=== PATIENT | female | born 1935 | race Caucasian/White ===

== ENCOUNTER 2018-05-14 15:16 | Inpatient (IN) | payer MEDICARE, BC ==
[~2018-05-14] VITALS: Ht 152.4 cm; Wt 49.9 kg
--- NOTE | 2018-05-14 15:39 | NUR ---
PT IS IN ROOM #1A DR GODINEZ EVALUATED THE PT.
[2018-05-14] MEDS ORDERED: IV NORMAL SALINE 500 ML BAG IV ONE (15:45)
[2018-05-14] MEDS ORDERED: PANTOPRAZOLE SODIUM 40 MG VIAL IV ONE (15:45)
[2018-05-14] MEDS ORDERED: SENN-167 PO (15:50)
[2018-05-14] MEDS ORDERED: DICL100G16 TP (15:50)
[2018-05-14] MEDS ORDERED: DOCU-141 PO (15:50)
[2018-05-14] MEDS ORDERED: TRAM50TA2 PO (15:50)
[2018-05-14] MEDS ORDERED: LACT-214 PO (15:50)
[2018-05-14] MEDS ORDERED: VITA100012 PO (15:50)
[2018-05-14] MEDS ORDERED: CALC-21 PO (15:50)
[2018-05-14] MEDS ORDERED: ESCI5TAB PO (15:50)
[2018-05-14] MEDS ORDERED: ALEN70TA3 PO (15:50)
[2018-05-14] MEDS ORDERED: ASCO500T10 PO (15:50)
[2018-05-14] MEDS ORDERED: BISA-79 PO (15:50)
[2018-05-14] MEDS ORDERED: NAPR-1192 PO (15:50)
[2018-05-14 16:04] LABS: BASOPHILS % (AUTO) 0.3 % (0.0-2.0); EOSINOPHILS # (AUTO) 0.3 K/uL (0.0-0.7); EOSINOPHILS % (AUTO) 2.7 % (0.0-7.0); HEMATOCRIT 26.6 % (31.2-41.9); LYMPHOCYTES # (AUTO) 1.8 K/uL (20.0-40.0); LYMPHOCYTES % (AUTO) 18.9 % (20.5-51.5); MEAN CORPUSCULAR HEMOGLOBIN 32.6 uug (24.7-32.8); MEAN CORPUSCULAR HGB CONC 34 g/dL (32.3-35.6); MEAN CORPUSCULAR VOLUME 96.6 fL (75.5-95.3); MONOCYTES # (AUTO) 0.9 K/uL (2.0-10.0); MONOCYTES % (AUTO) 9.3 % (0.0-11.0); NEUTROPHILS # (AUTO) 6.4 K/uL (1.8-8.9); NEUTROPHILS % (AUTO) 68.8 % (38.5-71.5); PLATELET COUNT (AUTO) 293 K/uL (179-408); RED BLOOD CELL COUNT(AUTO) 2.76 MIL/uL (3.63-4.92); WHITE BLOOD COUNT (AUTO) 9.3 K/uL (3.8-11.8)
[2018-05-14 16:15] LABS: CARBON DIOXIDE 27 mmol/L (21-32); CHLORIDE 109 mmol/L (98-107); CREATININE 0.8 mg/dL (0.6-1.3); GLUCOSE 114 mg/dL (74-106); UREA NITROGEN, BLOOD 32 mg/dL (7-18)
[2018-05-14 16:21] LABS: ALANINE AMINOTRANSFERASE 21 U/L (14-59); ALKALINE PHOSPHATASE 122 U/L (50-136); ASPARTATE AMINOTRANSFERASE 17 U/L (15-37); BILIRUBIN,DIRECT 0.2 mg/dL (0.0-0.2); TOTAL PROTEIN, SERUM 7.7 g/dL (6.4-8.2)
[2018-05-14] MEDS ORDERED: LEVOFLOXACIN 750 MG/D5W 150 ML PIGGYBACK IV ONE (17:15)
[2018-05-14] MEDS ORDERED: LEVOFLOXACIN 750MG/D5W 150 ML IV ONE (17:48)
--- NOTE | 2018-05-14 18:26 | NUR ---
PT WAS TRANSFERED TO ROOM #205. REPORT WAS GIVEN TO TELEMETRY R/N.
[2018-05-14 18:52] VITALS: BP 138/74
--- NOTE | 2018-05-14 18:55 | NUR ---
ADMITTED FROM [facility] VIA ER AN 83 YO FEMALE WITH ADM DX OF PNEUMONIA. AWAKE ALERT KNOWS NAME BUT CONFUSED TO TIME AND PLACE. PER ER REPORT PATIENT HAD HIP SURGERY A MONTH AGO (RIGHT HIP REPLACEMENT). A-PILLOW APPLIED FOR PRECAUTION. ENDORSED TO [employer]PORATE VP ADVERTISING & ONLINE
[2018-05-14] MEDS ORDERED: ONDANSETRON 4 MG/2 ML VIAL IV PRN (19:15)
[2018-05-14] MEDS ORDERED: Z GUARD REMEDY PASTE 57 GM TUBE TOP PRN (19:15)
[2018-05-14] MEDS ORDERED: ZOLPIDEM 5 MG TABLET PO PRN (19:15)
[2018-05-14] MEDS ORDERED: ACETAMINOPHEN 325 MG TABLET PO PRN (19:15)
[2018-05-14] MEDS ORDERED: MAGNESIUM HYDROXIDE 30 ML LIQUID UDC PO PRN (19:15)
[2018-05-14 19:17] VITALS: BP_SYST 124; BP_DIAS 61; BP_DIAS 79
--- NOTE | 2018-05-14 19:36 | NUR ---
CLINICAL PHARMACY NOTE: VANCOMYCIN DOSING Request for vancomycin dosing on 83 y/o female 5' 110lbs for pneumonia Temp 98.3F BUN 32 Scr 0.8 WBC 9.3 received Levaquin in ER. Start vancomycin 750mg ivpb q24h estimated trough 16.7. Will order trough level prior to 4th dose. Will continue to monitor.
[2018-05-14] MEDS: SENNOSIDES 1 TABLET PO SCH ×2 (21:00→21:32)
[2018-05-14] MEDS: TRAMADOL HCL 50 MG TABLET PO PRN (21:33)
[2018-05-14] MEDS ORDERED: PIPERACILLIN/TAZOBACTAM/D5W 3.375 G in PREMIXED 1 EACH IV SCH (22:00)
[2018-05-14] MEDS ORDERED: VANCOMYCIN IV 750 MG in IV DEXTROSE 5% 250 ML IV SCH (22:00)
[2018-05-14 23:15] VITALS: BP 131/68
[2018-05-15 03:34] VITALS: BP 115/62
[2018-05-15 06:15] LABS: BASOPHILS % (AUTO) 0.3 % (0.0-2.0); EOSINOPHILS # (AUTO) 0.5 K/uL (0.0-0.7); EOSINOPHILS % (AUTO) 5.9 % (0.0-7.0); HEMATOCRIT 22.5 % (31.2-41.9); HEMOGLOBIN 7.7 g/dL (10.9-14.3); LYMPHOCYTES % (AUTO) 13.1 % (20.5-51.5); MEAN CORPUSCULAR HEMOGLOBIN 32.7 uug (24.7-32.8); MEAN CORPUSCULAR HGB CONC 34 g/dL (32.3-35.6); MEAN CORPUSCULAR VOLUME 95.8 fL (75.5-95.3); MONOCYTES # (AUTO) 0.7 K/uL (2.0-10.0); MONOCYTES % (AUTO) 8.7 % (0.0-11.0); NEUTROPHILS # (AUTO) 5.7 K/uL (1.8-8.9); PLATELET COUNT (AUTO) 252 K/uL (179-408); WHITE BLOOD COUNT (AUTO) 7.9 K/uL (3.8-11.8)
[2018-05-15 06:26] LABS: RED BLOOD CELL COUNT(AUTO) 2.35 MIL/uL (3.63-4.92)
[2018-05-15 06:33] LABS: CARBON DIOXIDE 25 mmol/L (21-32); CHLORIDE 109 mmol/L (98-107); CHOLESTEROL 175 mg/dL (<200); CREATININE 0.5 mg/dL (0.6-1.3); GLUCOSE 88 mg/dL (74-106); HDL CHOLESTEROL 52 mg/dL (40-60); MAGNESIUM 2.1 mg/dL (1.8-2.4); POTASSIUM 3.1 mmol/L (3.5-5.1); TRIGLYCERIDES 85 MG/DL (30-150); UREA NITROGEN, BLOOD 14 mg/dL (7-18)
--- NOTE | 2018-05-15 07:01 | NUR ---
PT SLEPT INTERMITTENTLY THROUGH THE NIGHT AND WAS EASILY AWOKEN, PT COMPLAINED OF HIP PAIN ONCE DURING THE NIGHT, PAIN MEDICATION WAS GIVEN AND WAS EFFECTIVE, PT STILL COMPLAINED OF SLIGHT PAIN WHEN HER HIP WAS TOUCHED. PT DENIES HAVING ANY DIFFICULTY BREATHING. ALL NEEDS MET, SAFETY MEASURES ARE IN PLACE, CALL LIGHT WITHIN REACH, BED ALARM IS ON.
--- NOTE | 2018-05-15 07:20 | NUR ---
RECEIVED REPORT FROM BISQUE FINISHER NURSE, PATIENT IN BED ASLEEP, NO DISTRESS NOTED AT THIS TIME, BED IN LOW POSITION, SIDE RAILS UP X2, SITTER AT BEDSIDE, BED ALARM ON. Addendum: 05/15/18 at 0746 by TONY KHALIL RN NO SITTER AT BEDSIDE, CORRECTION TO NOTE.
[2018-05-15] MEDS ORDERED: LACTOSE FREE FOOD PO SCH (09:00)
[2018-05-15] MEDS ORDERED: VITAMIN E 1000 UNIT PO SCH ×2 (09:00)
[2018-05-15] MEDS ORDERED: ESCITALOPRAM OXALATE 10 MG TABLET PO SCH (09:00)
[2018-05-15] MEDS ORDERED: Medication Not On Formulary EA (Escitalopram Oxalate (Lexapro) 5 MG) PO SCH (09:00)
[2018-05-15] MEDS ORDERED: [UNRECOGNIZED DRUG - OTHER] PO SCH (09:00)
--- NOTE | 2018-05-15 09:00 | NUR ---
Patient was found with clothes off and climbing out of bed. Patient was transferred to another room for safety.
[2018-05-15] MEDS: PROTEIN SUPPLEMENT (PROSTAT) 30 ML LIQUID PO SCH ×3 (09:12→17:20)
[2018-05-15] MEDS: VITAMIN E 400 UNITS CAPSULE PO SCH (09:12)
[2018-05-15] MEDS: BISACODYL 5 MG TABLET.DR PO SCH (09:13)
[2018-05-15] MEDS: TRAMADOL HCL 50 MG TABLET PO PRN ×3 (09:13→21:23)
[2018-05-15] MEDS: DOCUSATE SODIUM 100 MG CAPSULE PO SCH ×2 (09:14→17:19)
[2018-05-15] MEDS: ASCORBIC ACID 500 MG TABLET PO SCH (09:14)
[2018-05-15 11:40] VITALS: BP 149/88
[2018-05-15] MEDS: GABAPENTIN 100 MG CAPSULE PO SCH ×2 (13:59→17:19)
[2018-05-15] MEDS: VANCOMYCIN IV 750 MG in IV DEXTROSE 5% 250 ML IV SCH (13:59)
--- NOTE | 2018-05-15 14:49 | NUR ---
CLINICAL PHARMACY NOTE: VANCOMYCIN DOSING Request for vancomycin dosing on 83 y/o female 5' 110lbs for pneumonia Temp 98.2F BUN 14 Scr 0.5 WBC 7.9 As Crcl has improved, adjusted frequency from 750mg q24h to q16 hr for estimated trough of 16.8, 2nd dose today at 1400. Will keep eye on renal fxn and adjust regimen if were to change or become unstable. Other will order trough before 4th scheduled dose (not ordered yet). Will follow
[2018-05-15] MEDS: POTASSIUM PHOSPHATE MM 7.5 MMOL in IV DEXTROSE 5% 100 ML IV SCH ×2 (15:27→17:20)
[2018-05-15 15:40] VITALS: BP 126/52
[2018-05-15] MEDS: LEVOFLOXACIN 500 MG/D5W 500 MG in PREMIXED 1 EACH IV SCH (16:52)
--- NOTE | 2018-05-15 18:44 | NUR ---
Patient has been agitated throughout shift, talking to self, hyper rastafari, grieving for dog and mother, and various out subjects. Patient is currently in bed, bed alarm on, bed in low position, side rails up x2, bed alarm on.
[2018-05-15 20:00] VITALS: BP 116/41
[2018-05-15] MEDS: SENNOSIDES 1 TABLET PO SCH (21:22)
[2018-05-15] MEDS: LACTOBACILLUS RHAMNOSUS GG 1 EACH CAPSULE PO SCH (21:22)
[2018-05-16 04:00] VITALS: BP 115/56
[2018-05-16] MEDS: TRAMADOL HCL 50 MG TABLET PO PRN ×3 (04:28→20:16)
[2018-05-16] MEDS ORDERED: ALENDRONATE SODIUM 70 MG TABLET PO SCH (06:00)
[2018-05-16 06:18] LABS: BASOPHILS % (AUTO) 0.4 % (0.0-2.0); EOSINOPHILS # (AUTO) 0.4 K/uL (0.0-0.7); EOSINOPHILS % (AUTO) 4.2 % (0.0-7.0); HEMATOCRIT 22.6 % (31.2-41.9); HEMOGLOBIN 7.8 g/dL (10.9-14.3); LYMPHOCYTES % (AUTO) 11.1 % (20.5-51.5); MEAN CORPUSCULAR HEMOGLOBIN 32.3 uug (24.7-32.8); MEAN CORPUSCULAR HGB CONC 35 g/dL (32.3-35.6); MEAN CORPUSCULAR VOLUME 93.6 fL (75.5-95.3); MONOCYTES # (AUTO) 0.8 K/uL (2.0-10.0); MONOCYTES % (AUTO) 8.6 % (0.0-11.0); NEUTROPHILS # (AUTO) 6.8 K/uL (1.8-8.9); NEUTROPHILS % (AUTO) 75.7 % (38.5-71.5); PLATELET COUNT (AUTO) 310 K/uL (179-408)
[2018-05-16 06:22] LABS: RED BLOOD CELL COUNT(AUTO) 2.41 MIL/uL (3.63-4.92)
[2018-05-16] MEDS: VANCOMYCIN IV 750 MG in IV DEXTROSE 5% 250 ML IV SCH ×2 (06:29→23:13)
[2018-05-16 06:39] LABS: IRON, SERUM 39 ug/dL (50-175)
[2018-05-16 06:56] LABS: CARBON DIOXIDE 26 mmol/L (21-32); CHLORIDE 106 mmol/L (98-107); CREATININE 0.5 mg/dL (0.6-1.3); FERRITIN 159 ng/mL (8-252); GLUCOSE 99 mg/dL (74-106); POTASSIUM 3.2 mmol/L (3.5-5.1); UREA NITROGEN, BLOOD 7 mg/dL (7-18)
[2018-05-16] MEDS: ASCORBIC ACID 500 MG TABLET PO SCH (08:11)
[2018-05-16] MEDS: LACTOBACILLUS RHAMNOSUS GG 1 EACH CAPSULE PO SCH ×2 (08:12→20:16)
[2018-05-16] MEDS: GABAPENTIN 100 MG CAPSULE PO SCH ×3 (08:12→16:04)
[2018-05-16] MEDS: BISACODYL 5 MG TABLET.DR PO SCH (08:12)
[2018-05-16] MEDS: DOCUSATE SODIUM 100 MG CAPSULE PO SCH ×2 (08:14→16:04)
[2018-05-16] MEDS: VITAMIN E 400 UNITS CAPSULE PO SCH (08:14)
[2018-05-16] MEDS: PROTEIN SUPPLEMENT (PROSTAT) 30 ML LIQUID PO SCH ×3 (08:24→16:05)
[2018-05-16] MEDS ORDERED: GABAPENTIN 100 MG CAPSULE PO SCH (09:00)
--- NOTE | 2018-05-16 09:15 | NUR ---
CLINICAL PHARMACY NOTE: VANCOMYCIN DOSING S: To continue vancomycin dosing on 83 y/o female patient for pneumonia O: Temp 98.2F BUN 7 Scr 0.5 WBC 9 ht 152.4 cm wt 49.8 kg Plan Will continue same dose of vanco 750mg IVPB q16 hr for today. 3rd dose was given today at 0600. Will order trough before 4th scheduled dose (ordered for 05/17 at 2130- RN has been informed to hold 2200 dose today if vanco trough level is above 20 mcg/ml). Will check vanco trough level in am & adjust the dose if needed. Will follow
[2018-05-16] MEDS ORDERED: TEMAZEPAM 7.5 MG CAPSULE PO PRN (11:00)
[2018-05-16] MEDS: DIVALPROEX SPRINKLE 125 MG CAP.SPRINK PO SCH ×3 (11:20→16:04)
[2018-05-16] MEDS: LEVOFLOXACIN 500 MG/D5W 500 MG in PREMIXED 1 EACH IV SCH (12:50)
[2018-05-16] MEDS ORDERED: POTASSIUM CHLORIDE 20 MEQ TAB.PRT.SR PO ONE (15:00)
--- NOTE | 2018-05-16 15:24 | NUR ---
PT OBSERVED RESTING IN BED, AOX1, REST LESS, TAKING OF CLOTHES AND TRYING TO GET OUT OF BED. BED IS AT LOWEST LOCKED POSITION.
[2018-05-16 16:37] VITALS: BP 120/53
[2018-05-16 19:00] VITALS: BP 118/81
--- NOTE | 2018-05-16 19:20 | NUR ---
RECEIVED PT AWAKE, ALERT, AND ORIENTEDX1. PT SHOWS NO SIGNS OF DISTRESS. PT TRYING TO GET OUT OF THE BED. PT TAKING OFF HER CLOTHES. SITTER AT BEDSIDE FOR SAFETY.BED ALARM ON.SAFETY AND COMFORT PROVIDED. WILL CONTINUE TO MONITOR. Addendum: 05/16/18 at 2136 by CARLOS WADSWORTH RN WRONG PATIENT. THIS NOTES SHOULD BE FOR FOR 201A.
--- NOTE | 2018-05-16 19:21 | NUR ---
RECEIVED PT AWAKE, ALERT AND ORIENTEDX1. PT SHOWS NO SIGNS OF DISTRESS. SITTER AT BEDSIDE FOR SAFETY. IV INTACT AND PATENT.BED ALARM ON.SAFETY AND COMFORT PROVIDED. WILL CONTINUE TO MONITOR.
[2018-05-16] MEDS: SENNOSIDES 1 TABLET PO SCH (20:16)
[2018-05-17 04:00] VITALS: BP 133/65
--- NOTE | 2018-05-17 06:19 | NUR ---
PT SLEPT INTERMITTENTLY. PT TRYING TO GET OUT OF THE BED. PT TAKING OFF HER CLOTHES AND DIAPER. SITTER AT BEDSIDE. BED ALARM ON. SAFETY AND COMFORT PROVIDED. WILL ENDORSE ACCORDINGLY TO DAYSHIFT NURSE.
[2018-05-17 06:31] LABS: CARBON DIOXIDE 30 mmol/L (21-32); CHLORIDE 106 mmol/L (98-107); CREATININE 0.6 mg/dL (0.6-1.3); GLUCOSE 90 mg/dL (74-106); POTASSIUM 3.3 mmol/L (3.5-5.1); UREA NITROGEN, BLOOD 11 mg/dL (7-18)
[2018-05-17] MEDS: GABAPENTIN 100 MG CAPSULE PO SCH ×2 (08:00→12:40)
[2018-05-17] MEDS: DIVALPROEX SPRINKLE 125 MG CAP.SPRINK PO SCH ×2 (08:00→12:40)
[2018-05-17] MEDS: ASCORBIC ACID 500 MG TABLET PO SCH (08:00)
[2018-05-17] MEDS: DOCUSATE SODIUM 100 MG CAPSULE PO SCH (08:00)
[2018-05-17] MEDS: BISACODYL 5 MG TABLET.DR PO SCH (08:00)
[2018-05-17] MEDS: LACTOBACILLUS RHAMNOSUS GG 1 EACH CAPSULE PO SCH (08:00)
[2018-05-17] MEDS: PROTEIN SUPPLEMENT (PROSTAT) 30 ML LIQUID PO SCH ×2 (08:01→11:03)
[2018-05-17] MEDS: VITAMIN E 400 UNITS CAPSULE PO SCH (08:02)
[2018-05-17 09:00] VITALS: BP 93/57
[2018-05-17] MEDS ORDERED: MENT71OI TOP (09:09)
[2018-05-17] MEDS ORDERED: PROT30LI PO (09:09)
[2018-05-17] MEDS ORDERED: TEMA7.5C PO (09:09)
[2018-05-17] MEDS ORDERED: GABA-532 PO (09:09)
[2018-05-17] MEDS ORDERED: DIVA125C2 PO (09:09)
[2018-05-17] MEDS ORDERED: POTASSIUM CHLORIDE 20 MEQ TAB.PRT.SR PO ONE (09:15)
[2018-05-17] MEDS ORDERED: VANCOMYCIN IV 750 MG in IV DEXTROSE 5% 250 ML IV SCH (11:00)
[2018-05-17 12:00] VITALS: BP 98/64
--- NOTE | 2018-05-17 15:35 | NUR ---
D/C ORDERS RECEIVED NOTED AND CARRIED OUT,D/C INSTRUCTION AND RN REPORT GIVEN TO [facility],D/C [facility] PER MD ORDERS,PT LEFT THE FACILITY VIA AMBULANCES IN STABLE CONDITION.
== END 2018-05-17 15:42 | DRG 193 ==
LOC: ER 15:16 → TELE 18:10 → MED 19:10
PROVIDERS: ADMIT Internal Medicine; ATTEND Internal Medicine
DX: J15.9 Unspecified bacterial pneumonia (principal); G92 Toxic encephalopathy; F05 Delirium due to known physiological condition; J98.11 Atelectasis; K92.2 Gastrointestinal hemorrhage, unspecified; Z66 Do not resuscitate; D50.0 Iron deficiency anemia secondary to blood loss (chronic); Z88.0 Allergy status to penicillin; Z88.2 Allergy status to sulfonamides; Z96.641 Presence of right artificial hip joint; Z87.440 Personal history of urinary (tract) infections; G30.9 Alzheimer's disease, unspecified; S72.111D Displaced fracture of greater trochanter of right femur, subsequent encounter for closed fracture with routine healing; F02.80 Dementia in other diseases classified elsewhere, unspecified severity, without behavioral disturbance, psychotic disturbance, mood disturbance, and anxiety; X58.XXXD Exposure to other specified factors, subsequent encounter; M80.88XD Other osteoporosis with current pathological fracture, vertebra(e), subsequent encounter for fracture with routine healing; Z79.83 Long term (current) use of bisphosphonates; Y95 Nosocomial condition; F39 Unspecified mood [affective] disorder; F01.50 Vascular dementia, unspecified severity, without behavioral disturbance, psychotic disturbance, mood disturbance, and anxiety
CPT/HCPCS: 36415; 70030-TC; 71045; 83550; 83735; 84100; 84443; 85025; 85730; 86850; 86900; 86901; 87040; 93005; A4663; J1956; J3370; J3490; J7030; J7040; J7060; J8499